=== PATIENT | female | born 1970 | race Caucasian/White ===

== ENCOUNTER → 2018-09-05 | Outpatient (CLI) | payer OTHER ==
--- NOTE | 2018-09-05 09:44 | Diagnostic Imaging Report ---
EXAMINATION: Renal ultrasound. CLINICAL HISTORY :Urinary tract infection COMPARISON: <None available.> TECHNIQUE: Grayscale and color Doppler evaluation of the kidneys and bladder was performed in transverse and longitudinal planes. DISCUSSION: RIGHT KIDNEY: The right kidney has been surgically removed. No abnormal soft tissue in the right renal fossa. LEFT KIDNEY: The left kidney measures 10.1 cm in length and shows normal renal cortical echogenicity. No hydronephrosis, shadowing calculi or solid mass lesions. BLADDER: Unremarkable. Left ureteral jet is identified. IMPRESSION: Status post right nephrectomy. Unremarkable sonographic appearance of the left kidney. Signed by: Dr. Javon Coffey M.D. on 09/05/2018 9:41 AM
== END ==
LOC: US 08:31
PROVIDERS: ATTEND Urology
DX: N39.0 Urinary tract infection, site not specified (principal)
CPT/HCPCS: 76770